=== PATIENT | male | born 1995 | race Caucasian/White ===

== ENCOUNTER 2019-06-07 20:44 | Emergency (ER) | payer OTHER ==
[2019-06-07 20:48] VITALS: BP 130/80; PULSE 89; TEMP 97.8; BMI 25.1
--- NOTE | 2019-06-07 21:49 | PDOC ---
History of Present Illness - General History Source: Patient Exam Limitations: No Limitations - History of Present Illness Initial Comments: 06/07/19 21:47 HISTORY OF PRESENT ILLNESS: 23-year-old male presents emergency department for evaluation of epistaxis status post septoplasty performed today at an outpatient surgical center. Patient reports has been changing his nasal dressing every couple of minutes as he is saturating gauze. Patient has been using Afrin as directed by his surgeon. Patient has made an attempt to contact his surgeon but was unsuccessful. Patient contacted another ENT specialist who recommended he go to the ER for evaluation. No recent travel or sick contacts. PAST MEDICAL HISTORY: Denies past medical history SURGICAL HISTORY: Denies ALLERGIES: No known drug allergies REVIEW OF SYSTEMS General/Constitutional: Denies fever or chills. Denies weakness, weight change. HEENT: see HPI Cardiovascular: Denies chest pain or shortness of breath. Respiratory: Denies cough, wheezing, or hemoptysis. Gastrointestinal: Denies nausea, vomiting, diarrhea or constipation. Denies rectal bleeding. Genitourinary: Denies dysuria, frequency, or change in urination. Musculoskeletal: Denies joint or muscle swelling or pain. Denies neck or back pain. Skin and breasts: Denies rash or easy bruising. Neurologic: Denies headache, vertigo, loss of consciousness, or loss of sensation. Psychiatric: Denies depression or anxiety. Endocrine: Denies increased thirst. Denies abnormal weight change. Hematologic/Lymphatic: Denies anemia, easy bleeding, or history of blood clots. Allergic/Immunologic: Denies hives or skin allergy. Denies latex allergy. PHYSICAL EXAM General Appearance: Well-appearing, appropriately dressed. No apparent distress, no intoxication. HEENT: EOMI, PERRLA, normal ENT inspection, normal voice, TMs normal, pharynx normal. No conjunctival pallor. No photophobia, scleral icterus. Dried blood present to bilateral naris. No active bleeding noted. Blood present in the posterior aspect of the oropharynx. Neck: Supple. Trachea midline. No tenderness, rigidity, carotid bruit, stridor, lymphadenopathy, or thyromegaly. Respiratory/Chest: Lungs CTAB. No shortness of breath, chest tenderness, respiratory distress, accessory muscle use. No crackles, rales, rhonchi, stridor, wheezing, dullness 06/07/19 21:57 <Tahir Felix - Last Filed: 06/07/19 23:10> <Luz Orozco - Last Filed: 06/08/19 22:17> - General Chief Complaint: Nasal Bleeding Stated Complaint: NOSE BLEEDING Time Seen by Provider: 06/07/19 20:49 Past History - Past Medical History COPD: No - Psycho Social/Smoking Cessation Hx Smoking History: Current every day smoker Information on smoking cessation initiated: No <Tahir Felix - Last Filed: 06/07/19 23:10> <Luz Orozco - Last Filed: 06/08/19 22:17> - Past Medical History Allergies/Adverse Reactions: Allergies Allergy/AdvReac Type Severity Reaction Status Date / Time No Known Allergies Allergy Verified 06/07/19 20:48 *Physical Exam - Vital Signs Last Vital Signs Temp Pulse Resp BP Pulse Ox 97.8 F 89 18 130/80 99 06/07/19 20:45 06/07/19 20:45 06/07/19 20:45 06/07/19 20:45 06/07/19 20:45 <Tahir Felix - Last Filed: 06/07/19 23:10> - Vital Signs Last Vital Signs Temp Pulse Resp BP Pulse Ox 97.8 F 89 18 130/80 99 06/07/19 20:45 06/07/19 20:45 06/07/19 20:45 06/07/19 20:45 06/07/19 20:45 <Lzu Orozco - Last Filed: 06/08/19 22:17> ED Treatment Course - LABORATORY CBC & Chemistry Diagram: 06/07/19 21:38 06/07/19 21:38 <Tahir Felix - Last Filed: 06/07/19 23:10> - LABORATORY CBC & Chemistry Diagram: 06/07/19 21:38 06/07/19 21:38 - ADDITIONAL ORDERS Additional order review: Laboratory Results 06/07/19 06/07/19 21:38 21:38 PT with INR 12.30 INR 1.04 Sodium 139 Potassium 4.3 Chloride 106 Carbon Dioxide 25 Anion Gap 8 BUN 16.4 Creatinine 1.1 Est GFR (CKD-EPI)AfAm 107.56 Est GFR (CKD-EPI)NonAf 92.81 Random Glucose 120 H Calcium 8.8 06/07/19 21:38 RBC 5.17 MCV 90.0 MCHC 35.3 RDW 12.9 MPV 9.7 Neutrophils % 89.6 H Lymphocytes % 8.3 Monocytes % 1.9 L Eosinophils % 0.0 Basophils % 0.2 <Luz Orozco - Last Filed: 06/08/19 22:17> Medical Decision Making - Medical Decision Making 06/07/19 21:49 A/P: 23-year-old male with resolved epistaxis. As patient reports heavy bleeding I will collect labs including CBC, BMP and coagulation profile Monitor 06/07/19 22:06 Scant blood present to dressing at the nares. Patient remove the dressing since he noticed blood. Patient has been instructed to keep dressing in place as frequent removal of the dressing may lead to continuous bleeding. Dr. Thapa the patient's willow analyst has been paged to the answering service. Awaiting callback at this time. 06/07/19 22:16 Case has been discussed with Dr. Thapa who prefers we do not use any nasal packing or Rhino Rocket. She agrees with the plan with conservative management and agrees to see the patient on Monday. Laboratory testing is pending. Patient has been instructed Not to remove the dressing on his nose until further notice. Monitor 06/07/19 23:11 Hemostasis has been achieved. Consult with his ENT specialist has been discussed with the patient who has verbalized understanding. I will discharge the patient home to follow-up with ENT on Monday. I discussed the physical exam findings, ancillary test results and final diagnoses with the patient. I answered all of the patient's questions. The patient was satisfied with the care received and felt comfortable with the discharge plan and treatment plan. The patient will call their primary care physician within 24 hours to arrange follow-up and will return to the Emergency Department with any new, persistent or worsening symptoms. Portions of this note have been documented using voice recognition software. As a result, errors may occur in the sales agent fire [employer] process. Effort has been made to correct all grammatical and sales agent [employer] error, but some may have been missed which may produce sporadic inaccurate sales agent [employer] or nonsensical phrases. <Tahir Felix - Last Filed: 06/07/19 23:10> - Medical Decision Making The patient was seen and evaluated in conjunction with midlevel provider under my direct supervision, ancillary studies were reviewed. I agree with the plan as outlined with LOAD TESTER Isidro. HPI, workup/dispo as outlined. VS reviewed, wnl. labs and lytes wnl. anticipate discharge, ENT followup, return precautions 06/07/19 22:50 <Luz Orozco - Last Filed: 06/08/19 22:17> Discharge - Discharge Information Problems reviewed: Yes - Admission No <Tahir Felix - Last Filed: 06/07/19 23:10> <Luz Orozco - Last Filed: 06/08/19 22:17> - Discharge Information Clinical Impression/Diagnosis: Epistaxis Condition: Good Disposition: HOME - Patient Discharge Instructions Additional Instructions: Continue all postop instructions provided to you by your ENT specialist. Use Afrin for no more than 3 days. I spoke with Dr. Thapa who says she will see you on Monday in the office. Return to emergency department for worsening bleeding, dizziness, lightheadedness, shortness of breath or for any other concerns. Thank you very much for choosing us to provide your emergent healthcare needs.
[2019-06-07 22:11] LABS: BASO % 0.2 % (0-2.0); HEMATOCRIT 46.5 % (35.4-49); HEMOGLOBIN 16.4 GM/dL (11.7-16.9); LYMPH % 8.3 % (8-40); MCH 31.7 pg (25.7-33.7); MCHC 35.3 g/dl (32.0-35.9); MEAN PLT VOLUME 9.7 fl (7.5-11.1); MONO % 1.9 % (3.8-10.2); NEUT % 89.6 % (42.8-82.8); PLATELET COUNT 210 K/MM3 (134-434); RBC 5.17 M/mm3 (4.00-5.60); RDW 12.9 % (11.9-15.9); WHITE BLOOD COUNT 11.2 K/mm3 (4.0-10.0)
[2019-06-07 22:23] LABS: INR 1.04 (0.83-1.09); PROTHROMBIN TIME (PATIENT) 12.3 SEC (9.7-13.0)
[2019-06-07 22:34] LABS: BLOOD UREA NITROGEN 16.4 mg/dL (7-18); CALCIUM 8.8 mg/dL (8.5-10.1); CREATININE 1.1 mg/dL (0.55-1.3); POTASSIUM 4.3 mmol/L (3.5-5.1)
== END 2019-06-07 23:17 | disposition home or self-care (01) ==
LOC: JER 20:44
DX: R04.0 Epistaxis (principal); F17.210 Nicotine dependence, cigarettes, uncomplicated
CPT/HCPCS: 36415; 80048; 85025; 85610; 99283-25

== ENCOUNTER 2022-12-13 11:58 | Emergency (ER) | payer OTHER ==
[2022-12-13 12:05] VITALS: BP 120/75; PULSE 96; RESP 20; TEMP 98.3; BMI 24.3
[2022-12-13] MEDS ORDERED: IBUPROFEN 400 MG TABLET (FP) PO ONE ×2 (12:36→13:04)
== END 2022-12-13 14:02 | disposition home or self-care (01) ==
LOC: JERFT 11:58
DX: R07.81 Pleurodynia (principal); X50.0XXA Overexertion from strenuous movement or load, initial encounter
CPT/HCPCS: 71101-TC-LT-FY; 93005; 93010; 99284-25